=== PATIENT | male | born 1950 | race Caucasian/White ===

== ENCOUNTER 2016-12-04 17:56 | Emergency (ER) | payer SELFPAY ==
[2016-12-04 18:05] VITALS: BP 104/73; PULSE 83; TEMP 98.5; BMI 20.9
--- NOTE | 2016-12-04 21:51 | PDOC ---
History of Present Illness - General Chief Complaint: Wound Stated Complaint: REDNESS TO AFFECTED AREA Time Seen by Provider: 12/04/16 20:41 - History of Present Illness Initial Comments: 12/04/16 21:34 Patient is a 66 year old male who presents with lower extremity wounds and itching. The patient reports lower extremity rashes and wounds over the past 4 months with increased itching today prompting his visit to the ED. He does not have a primary care provider and has not seen a physician in over 5 years. He denies any pain in his extremities and denies any medical history besides a cholecystectomy done in [facility] 20 years ago. He denies taking any medication. He denies any fevers, chills, SOB, chest pain, abdominal pain, or changes with bowel movements or urination. Past History - Past Medical History Allergies/Adverse Reactions: Allergies Allergy/AdvReac Type Severity Reaction Status Date / Time No Known Allergies Allergy Verified 12/04/16 18:05 - Surgical History Cholecystectomy: Yes - Psycho/Social/Smoking Cessation Hx Suicidal Ideation: No Smoking History: Current every day smoker Number of Cigarettes Smoked Daily: 10 Information on smoking cessation initiated: No Review of Systems - Review of Systems Constitutional: No: Chills, Fever Respiratory: Yes: Cough. No: Shortness of Breath Cardiac (ROS): No: Chest Pain, Lightheadedness, Palpitations ABD/GI: No: Constipated, Diarrhea, Nausea, Vomiting : No: Burning, Dysuria Integumentary: Yes: Erythema, Lesions, Pruritus, Rash Neurological: No: Headache, Numbness, Tingling, Weakness *Physical Exam - Vital Signs Last Vital Signs Temp Pulse Resp BP Pulse Ox 98.5 F 83 18 104/73 97 12/04/16 18:00 12/04/16 18:00 12/04/16 18:00 12/04/16 18:00 12/04/16 18:00 - Physical Exam Comments: 12/04/16 21:54 General Appearance: Nourished. No Apparent Distress HEENT: No Pharyngeal Erythema, Tonsillar Exudate, Tonsillar Erythema Respiratory/Chest: Lungs Clear, Normal Breath Sounds. No Crackles, Rales, Rhonchi, Wheezing Cardiovascular: Regular Rhythm, Regular Rate. No Murmur, Gallop/S3, Gallop/S4 Gastrointestinal/Abdominal: Normal Bowel Sounds, Soft. No Guarding, Rebound, Tenderness Extremity: Normal Capillary Refill, Multiple erythemitous lesions without purulent drainage and some skin thickening and peeling bilaterally in the lower extremities with the largest in the popletial fossa of the right leg and dorsal left foot. Integumentary: Normal Color, Dry, Warm Neurologic: Fully Oriented, Alert, Normal Mood/Affect, Normal Response ED Treatment Course - LABORATORY CBC & Chemistry Diagram: 12/04/16 22:00 12/04/16 22:00 - RADIOLOGY Radiology Studies Ordered: Category Date Time Status CHEST PA & LAT [RAD] Stat Radiology 12/04/16 21:03 Ordered Medical Decision Making - Medical Decision Making 12/04/16 21:56 Patient is a 66 year old male who presents with lower extremity lesions and itching. Given the exam of the patient, it is unclear what the lesions are and will likely require biopsy and evaluation by a border patrol officer to diagnosis. The lesions appear not be infectious in nature and do not appear to be cellulitic in nature. They appear more to be a skin process that is difficult to evaluate here in the ER. The patient has a long history of smoking and does endorse a cough, so we will obtain a cbc, cmp and chest radiograph to evaluate. 12/04/16 23:10 CBC, cmp are unremarkable. Chest radiograph preliminarily read by ER physician as no acute infiltrates with hyperinflation of the lungs pending official read in the am. We discussed the results with the patient and feel comfortable discharging him home with follow up with a primary care provider and border patrol officer to evaluate the rashes on his lower extremities. We stressed the importance of following up with these providers and provided him a referral. He voiced understanding and is agreeable with the plan. *DC/Admit/Observation/Transfer Diagnosis at time of Disposition: Pruritus - Discharge Dispostion Disposition: HOME Condition at time of disposition: Improved Admit: No - Referrals Referrals: Luna Tejeda MD [Staff Physician] - - Patient Instructions Printed Discharge Instructions: DI for Itching Additional Instructions: Por favor volver a ER si experimenta sobre o empeoramiento de los sntomas nataliya fiebres, escalofros. Es importante que sigas con un mdico para ser evaluada por un dermatlogo para las erupciones en las piernas. Le hemos proporcionado un referencia y nmero de telfono Dr. Tejeda. Por favor llame para hacer susana kirt con moris. Puede sanjay Benadryl para la picazn y aplica susana crema antibacteriana nataliya bacitracin o neosporin para las erupciones. Print Language: [id number]
[2016-12-04 22:04] LABS: EOSINOPHIL 2.5 % (0-4.5); MCH 28.5 pg (25.7-33.7); MCHC 33.4 g/dl (32.0-35.9); MEAN CELL VOLUME 85.4 fl (80-96); MEAN PLT VOLUME 8.6 fl (7.5-11.1); NEUTROPHILS 70.8 % (42.8-82.8); PLATELET COUNT 241 K/MM3 (134-434); RDW 15.9 % (11.9-15.9); WHITE BLOOD COUNT 8.7 K/mm3 (4.0-10.0)
[2016-12-04 22:37] LABS: ALBUMIN 3.7 g/dl (3.4-5.0); ANION GAP 8 (8-16); BILIRUBIN,TOTAL 0.6 mg/dL (0.2-1.0); CALCIUM 9.6 mg/dL (8.5-10.1); CO2 28 mmol/L (21-32); GLUCOSE,RANDOM 87 mg/dL (74-106); SGOT/AST 20 U/L (15-37); SGPT/ALT 23 U/L (12-78); TOT PROT 7.6 g/dl (6.4-8.2)
[2016-12-04 22:38] LABS: ALK PHOS 100 U/L (45-117)
[2016-12-04 22:46] LABS: INR 1.04 (0.82-1.09); PROTHROMBIN TIME (PATIENT) 11.4 SEC (9.98-11.88)
== END 2016-12-04 23:43 | disposition home or self-care (01) ==
LOC: JER 17:56
DX: L29.8 Other pruritus (principal); L98.8 Other specified disorders of the skin and subcutaneous tissue
CPT/HCPCS: 36415; 71020-TC; 80053; 85025; 85610; 99282-25

== ENCOUNTER 2020-04-22 09:35 | Emergency (ER) | payer SELFPAY ==
[2020-04-22 10:16] VITALS: BP 101/69; PULSE 92; TEMP 97.7; BMI 24.3
== END 2020-04-22 11:34 | disposition home or self-care (01) ==
LOC: JER 09:35
DX: R51.9 Headache, unspecified (principal); R68.83 Chills (without fever); Z11.52 Encounter for screening for COVID-19
CPT/HCPCS: 71046-TC-FY; 99284-25; C9803; U0003